=== PATIENT | female | born 1950 | race African-American/Black ===

== ENCOUNTER 2017-03-14 10:10 | Outpatient (CLI) | payer MEDICARE, OTHER ==
--- NOTE | 2017-03-14 11:28 | Mammography Report ---
BONE DEXA:03/14/17 10:10:00 CLINICAL: Postmenopausal. No comparison. TECHNIQUE: Two site bone DEXA performed on an Hologic scanner. FINDINGS: The average BMD of the lumbar spine L1-L4 is 0.681g/cm squared with a T-score of -3.3 and a Z-score of -1.5. The average BMD of the left hip is 0.761g/cm squared with a T-score of -1.5 and a Z-score of -0.2. The left femoral neck BMD is 0.662g/cm squared with a T score of -1.7 and a Z score of -0.1. IMPRESSION: 1. WHO classification: Osteoporosis with high fracture risk based on lumbar spine measurements. 2. WHO classification: Osteopenia with increased fracture risk based on left hip measurements. RECOMMENDATION: Clinical correlation and routine screening. DEFINITIONS: BMD = Bone Mineral Density T-score = BMD related to mean peak bone mass of young adult (mean expressed in Standard Deviation) Z-score = Age matched BMD expressed in SD World Health Organization (WHO) Diagnostic Criteria Normal T-score > -1 SD Osteopenia T-score between -1 and -2.4 SD Osteoporosis T-score -2.5 SD or below NOTE: BMD is not the only risk factor for fracture. One should also consider factors such as the patient's age, risk of falling, previous osteoporotic fracture, family history of osteoporotic fractures, current smoker, and low body weight. Z-scores are not calculated if >80 years of age.
== END 2017-03-14 10:11 | disposition home or self-care (01) ==
LOC: MAMMO 10:10
PROVIDERS: ATTEND Internal Medicine
DX: M81.0 Age-related osteoporosis without current pathological fracture (principal); M85.88 Other specified disorders of bone density and structure, other site; Z78.0 Asymptomatic menopausal state
CPT/HCPCS: 77080